=== PATIENT | male | born 1980 | race African-American/Black ===

== ENCOUNTER 2016-10-02 18:37 | Inpatient (IN) | payer OTHER ==
[2016-10-02 19:13] VITALS: BMI 23.6
--- NOTE | 2016-10-02 19:43 | HP ---
CIWA Score - CIWA Score Nausea/Vomitin-Mild Nausea/No Vomiting Muscle Tremors: 4-Moderate,w/Arms Extend Anxiety: 4-Mod. Anxious/Guarded Agitation: 4-Moderately Restless Paroxysmal Sweats: 1-Minimal Palms Moist Orientation: 0-Oriented Tacttile Disturbances: 0-None Auditory Disturbances: 0-None Visual Disturbances: 0-None Headache: 0-None Present CIWA-Ar Total Score: 14 Admission ROS BHS - HPI Chief Complaint: WITHDRAWAL SX Allergies/Adverse Reactions: Allergies Allergy/AdvReac Type Severity Reaction Status Date / Time Fish Containing Products Allergy Severe Rash Verified 06/03/16 11:39 No Known Drug Allergies Allergy Verified 06/03/16 11:39 History of Present Illness: 36 YEARS OLD MALE WITH LONG HISTORY OF ALCOHOL NICOTINE DEPENDENCE DENIES MEDICAL ISSUE HAS SEVERE INSOMNIA AND ANXIETY PANIC ATTACK IS ADMITTED TO DETOX Exam Limitations: No Limitations - Ebola screening Have you traveled outside of the country in the last 21 days: No Have you had contact with anyone from an Ebola affected area: No Have you been sick,other than usual withdrawal symptoms: No Do you have a fever: No - Review of Systems Constitutional: Chills, Loss of Appetite, Changes in sleep, Unintentional Wgt. Loss, Unexplained wgt Loss EENT: reports: No Symptoms Reported Respiratory: reports: No Symptoms reported Cardiac: reports: No Symptoms Reported GI: reports: Nausea, Poor Appetite, Poor Fluid Intake, Abdominal cramping : reports: No Symptoms Reported Musculoskeletal: reports: No Symptoms Reported Integumentary: reports: No Symptoms Reported Neuro: reports: Tremors Endocrine: reports: No Symptoms Reported Hematology: reports: No Symptoms Reported Psychiatric: reports: Judgement Intact, Mood/Affect Appropiate, Orientated x3 Other Systems: Reviewed and Negative Patient History - Patient Medical History Hx Anemia: No Hx Asthma: No Hx Chronic Obstructive Pulmonary Disease (COPD): No Hx Cancer: No Hx Cardiac Disorders: No Hx Congestive Heart Failure: No Hx Hypertension: No Hx Hypercholesterolemia: No Hx Pacemaker: No HX Cerebrovascular Accident: No Hx Seizures: No Hx Dementia: No Hx Diabetes: No Hx Gastrointestinal Disorders: No Hx Liver Disease: No Hx Genitourinary Disorders: No Hx Sexually Transmitted Disorders: No Hx Renal Disease (ESRD): No Hx Thyroid Disease: No Hx Human Immunodeficiency Virus (HIV): No Hx Hepatitis C: No Hx Depression: Yes Hx Suicide Attempt: No Hx Bipolar Disorder: No Hx Schizophrenia: No - Patient Surgical History Past Surgical History: Yes Hx Abdominal Surgery: Yes (UMBILICAL AGE 16) Hx Cholecystectomy: Yes (AGE 16) Anesthesia Reaction: No - PPD History Previous Implant?: Yes Documented Results: Negative w/o proof Implanted On Prior R Admission?: No PPD to be Administered?: Yes - Smoking Cessation Smoking history: Current every day smoker Have you smoked in the past 12 months: Yes Aproximately how many cigarettes per day: 20 Cigars Per Day: 0 Hx Chewing Tobacco Use: No Initiated information on smoking cessation: Yes 'Breaking Loose' booklet given: 10/02/16 - Substance & Tx. History Hx Alcohol Use: Yes Hx Substance Use: Yes Substance Use Type: Alcohol, Cocaine, Marijuana Hx Substance Use Treatment: No - Substances Abused Alcohol Route: Oral Frequency: Daily Amount used: GALLON WHISKY Age of first use: 16 Date of Last Use: 10/02/16 Family Disease History - Family Disease History Family Disease History: Other: Grandparent (), Father ( OVER DOSE), Mother (ALCOHOLIC), Brother (ALCOHOLIC), Sister (ALCOHOLIC) Admission Physical Exam S - Vital Signs Vital Signs: Vital Signs - 24 hr 10/02/16 19:12 Temperature 98.3 F Pulse Rate 77 Respiratory 20 Rate Blood Pressure 130/79 - Physical General Appearance: Yes: Appropriately Dressed, Mild Distress, Thin, Tremorous, Irritable, Sweating, Anxious HEENTM: Yes: Hearing grossly Normal, Normal ENT Inspection, Normocephalic, Normal Voice Respiratory: Yes: Chest Non-Tender, Lungs Clear, Normal Breath Sounds, No Respiratory Distress, No Accessory Muscle Use Neck: Yes: Supple, Trachea in good position Breast: Yes: Breasts Symetrical Cardiology: Yes: Regular Rhythm, Regular Rate, S1, S2 Abdominal: Yes: Non Tender, Soft Genitourinary: Yes: Within Normal Limits Back: Yes: Normal Inspection Musculoskeletal: Yes: full range of Motion, Gait Steady Extremities: Yes: Normal Inspection, Normal Range of Motion, Non-Tender, Tremors Neurological: Yes: Fully Oriented, Alert, Motor Strength 5/5, Normal Response, Depressed Affect Integumentary: Yes: Warm Lymphatic: Yes: Within Normal Limits - Diagnostic (1) Alcohol dependence with uncomplicated withdrawal Current Visit: Yes Status: Acute (2) Cocaine dependence, uncomplicated Current Visit: Yes Status: Chronic (3) Cannabis dependence, uncomplicated Current Visit: Yes Status: Chronic (4) Nicotine dependence Current Visit: Yes Status: Acute Qualifiers: Nicotine product type: cigarettes Substance use status: in withdrawal Qualified Code(s): F17.213 - Nicotine dependence, cigarettes, with withdrawal (5) Weight loss Current Visit: Yes Status: Acute (6) Insomnia due to anxiety and fear Current Visit: Yes Status: Suspected Cleared for Admission S - Detox or Rehab [facility] Level of Care: Medically Managed Detox Regimen/Protocol: Librium [facility] Breath Alcohol Content Breath Alcohol Content: 0 Urine Drug Screen - Results Drug Screen Negative: No Urine Drug Screen Results: THC-Marijuana, JEFFERY-Cocaine
[2016-10-02] MEDS ORDERED: NICOTINE POLACRILEX 4 MG GUM BC PRN (20:20)
[2016-10-02] MEDS ORDERED: chlordiazePOXIDE HCL 25 MG CAPSULE PO PRN (20:20)
[2016-10-02] MEDS ORDERED: MAGNESIUM CITRATE 300 ML BOTTLE PO PRN (20:20)
[2016-10-02] MEDS ORDERED: MENTHOL/PHENOL 1 EACH UD MM PRN (20:20)
[2016-10-02] MEDS ORDERED: MAGNESIUM HYDROX 2400MG/30ML ORAL SUSPENSION 30 ML CUP PO PRN (20:20)
[2016-10-02] MEDS ORDERED: ACETAMINOPHEN 325 MG TABLET (FP) PO PRN (20:20)
[2016-10-02] MEDS ORDERED: diphenhydrAMINE HCL 50 MG CAPSULE PO PRN (20:20)
[2016-10-02] MEDS ORDERED: IBUPROFEN 400 MG TABLET (FP) PO PRN (20:20)
[2016-10-02] MEDS ORDERED: LOPERAMIDE HCL 2 MG CAPSULE PO PRN (20:20)
[2016-10-02] MEDS ORDERED: P-EPHED 60MG/TRIPROLIDI 2.5MG TABLET PO PRN (20:20)
[2016-10-02] MEDS ORDERED: chlordiazePOXIDE HCL 25 MG CAPSULE PO ONE (20:20)
[2016-10-02] MEDS ORDERED: guaiFENesin/D-METHORPHAN HB 10 ML UNIT-DOSE CUPS PO PRN (20:20)
[2016-10-02] MEDS ORDERED: hydrOXYzine PAMOATE 50 MG CAPSULE (FP) PO PRN (20:20)
[2016-10-02] MEDS ORDERED: MAG HYDROX/AL HYDROX/SIMETH 30 ML UNIT-DOSE CUP PO PRN (20:20)
[2016-10-02 22:55] LABS: URINE APPEARANCE CLEAR; URINE BILIRUBIN NEGATIVE (NEGATIVE); URINE BLOOD NEGATIVE (NEGATIVE); URINE COLOR DKYELLOW; URINE GLUCOSE (UA) NEGATIVE (NEGATIVE); URINE KETONE NEGATIVE (NEGATIVE); URINE LEUK ESTERASE NEGATIVE (NEGATIVE); URINE NITRITE NEGATIVE (NEGATIVE); URINE PROTEIN NEGATIVE (NEGATIVE); URINE UROBILINOGEN 4.0 E.U/dl E.U./dl (0.2-1.0)
[2016-10-02] MEDS: THIAMINE HCL 100 MG TABLET (FP) PO SCH (23:20)
[2016-10-02] MEDS: chlordiazePOXIDE HCL 25 MG CAPSULE PO SCH (23:27)
[2016-10-03] MEDS: chlordiazePOXIDE HCL 25 MG CAPSULE PO SCH ×4 (06:11→22:13)
[2016-10-03 10:05] LABS: MCH 24.2 pg (25.7-33.7); MCHC 30.8 g/dl (32.0-35.9); MEAN CELL VOLUME 78.4 fl (80-96); MEAN PLT VOLUME 8.5 fl (7.5-11.1); PLATELET COUNT 311 K/MM3 (134-434); RDW 15.9 % (11.9-15.9); WHITE BLOOD COUNT 9.1 K/mm3 (4.0-10.0)
[2016-10-03 10:26] LABS: ALBUMIN 3.8 g/dl (3.4-5.0); ALK PHOS 877 U/L (45-117); ANION GAP 9 (8-16); BILIRUBIN,TOTAL 1.9 mg/dL (0.2-1.0); CALCIUM 9.4 mg/dL (8.5-10.1); CO2 30 mmol/L (21-32); COCKROFT - GAULT 126.66; CREATININE 0.9 mg/dL (0.7-1.3); GLUCOSE,RANDOM 59 mg/dL (74-106); SGOT/AST 222 U/L (15-37); SGPT/ALT 152 U/L (12-78); TOT PROT 8.7 g/dl (6.4-8.2)
[2016-10-03] MEDS: PRENATAL VITAMINS W/ FOLIC ACID TABLET (FP) PO SCH (10:53)
[2016-10-03] MEDS: NICOTINE 21 MG/24 HOURS TOPICAL PATCH TD SCH (10:53)
--- NOTE | 2016-10-03 14:41 | PN ---
[facility] CIWA - CIWA Score Nausea/Vomitin-Mild Nausea/No Vomiting Muscle Tremors: 2 Anxiety: 4-Mod. Anxious/Guarded Agitation: 3 Paroxysmal Sweats: 3 Orientation: 0-Oriented Tacttile Disturbances: 0-None Auditory Disturbances: 2-Mild Harshness/Frighten Visual Disturbances: 2-Mild Sensitivity Headache: 0-None Present CIWA-Ar Total Score: 17 [facility] Progress Note (SOAP) Subjective: Interrupted sleep, Body aches, Sweating. Objective: PT. A & O X 3, OBSERVED AMBULATING ON UNIT. NO ACUTE DISTRESS. PT. DENIES CHEST PAIN. 10/03/16 14:39 Vital Signs Temperature 98.0 F 10/03/16 13:05 Pulse Rate 76 10/03/16 13:05 Respiratory Rate 18 10/03/16 13:05 Blood Pressure 140/97 10/03/16 13:05 O2 Sat by Pulse Oximetry (%) Laboratory Tests 10/02/16 10/03/16 10/03/16 22:21 08:00 08:00 WBC 9.1 RBC 5.58 Hgb 13.5 Hct 43.8 MCV 78.4 L MCHC 30.8 L RDW 15.9 Plt Count 311 MPV 8.5 Sodium 138 Potassium 4.1 Chloride 99 Carbon Dioxide 30 Anion Gap 9 BUN 10 Creatinine 0.9 Creat Clearance w eGFR > 60 Random Glucose 59 L Calcium 9.4 Total Bilirubin 1.9 H AST 222 H ALT 152 H Alkaline Phosphatase 877 H Total Protein 8.7 H Albumin 3.8 Urine Color Dkyellow Urine Appearance Clear Urine pH 6.0 Ur Specific [place] 1.015 Urine Protein Negative Urine Glucose (UA) Negative Urine Ketones Negative Urine Blood Negative Urine Nitrite Negative Urine Bilirubin Negative Urine Urobilinogen 4.0 e.u/dl Ur Leukocyte Esterase Negative RPR Titer 10/03/16 08:00 WBC RBC Hgb Hct MCV MCHC RDW Plt Count MPV Sodium Potassium Chloride Carbon Dioxide Anion Gap BUN Creatinine Creat Clearance w eGFR Random Glucose Calcium Total Bilirubin AST ALT Alkaline Phosphatase Total Protein Albumin Urine Color Urine Appearance Urine pH Ur Specific [place] Urine Protein Urine Glucose (UA) Urine Ketones Urine Blood Urine Nitrite Urine Bilirubin Urine Urobilinogen Ur Leukocyte Esterase RPR Titer Nonreactive LABS NOTED. Assessment: 10/03/16 14:39 WITHDRAWAL SYMPTOMS. Plan: CONTINUE DETOX. HEPATIC FUNCTION PANEL ON 10/05/2016 FOR ELEVATED ADMISSION LIVER ENZYME LEVELS.
--- NOTE | 2016-10-03 15:00 | CONSULT ---
[facility] Psychiatric Consult - Data Date of interview: 10/03/16 Admission source: [facility] Identifying data: First admission to [facility] for this 36 y/o AA male seeking detox treatment for alcohol,cocaine and marijuana dependence.Patient is , a father of three,domiciled,unemployed and evasive on means of support. Substance Abuse History: - Smoking Cessation. Smoking history: Current every day smoker. Have you smoked in the past 12 months: Yes. Aproximately how many cigarettes per day: 20. Cigars Per Day: 0. Hx Chewing Tobacco Use: No. Initiated information on smoking cessation: Yes. 'Breaking Loose' booklet given : 10/02/16. - Substance & Tx. History. Hx Alcohol Use: Yes. Hx Substance Use : Yes. Substance Use Type: Alcohol, Cocaine, Marijuana. Hx Substance Use Treatment: No. - Substances Abused. Alcohol. Route: Oral. Frequency: Daily. Amount used: GALLON WHISKY. Age of first use: 16. Date of Last Use: . Confirmed by patient. Medical History: Noted history of cholecystectomy and umbilical herniorraphy.Elevated liver enzymes,as per [facility] report. Psychiatric History: No reported history of psychiatric hospitalizations or psychiatric OPD care.Patient indicates that was prescribed seroquel for insomnia.Mr Vora denies history of psychiatric illness.Denies suicide attempts. Physical/Sexual Abuse/Trauma History: Patient denies. Additional Comment: Urine Drug Screen Results: THC-Marijuana, JEFFERY-Cocaine.Noted. Mental Status Exam - Mental Status Exam Alert and Oriented to: Time, Place, Person Cognitive Function: Good Patient Appearance: Well Groomed Mood: Nervous, Withdrawn Affect: Mood Congruent Patient Behavior: Fatigued, Cooperative Speech Pattern: Clear Voice Loudness: Normal Thought Process: Goal Oriented Thought Disorder: Not Present Hallucinations: Denies Suicidal Ideation: Denies Homicidal Ideation: Denies Insight/Judgement: Poor Sleep: Poorly, Difficulty falling asleep Appetite: Good Muscle strength/Tone: Normal Gait/Station: Normal Psychiatric Findings - Problem List ([place] 1, 2,3) (1) Alcohol dependence with uncomplicated withdrawal Current Visit: Yes Status: Acute (2) Cannabis dependence, uncomplicated Current Visit: Yes Status: Acute (3) Cocaine dependence, uncomplicated Current Visit: Yes Status: Acute (4) Nicotine dependence Current Visit: Yes Status: Acute Qualifiers: Nicotine product type: cigarettes Substance use status: in withdrawal Qualified Code(s): F17.213 - Nicotine dependence, cigarettes, with withdrawal (5) Insomnia Current Visit: Yes Status: Acute - Initial Treatment Plan Initial Treatment Plan: Psychoeducation.Detoxification.Seroquel 100 mg po hs.Side effects/benefits discussed with the patient.Observation.
--- NOTE | 2016-10-03 15:45 | EKG ---
Test Reason : Blood Pressure : / mmHG Vent. Rate : 072 BPM Atrial Rate : 072 BPM P-R Int : 148 ms QRS Dur : 090 ms QT Int : 422 ms P-R-T Axes : 068 086 051 degrees QTc Int : 462 ms NORMAL SINUS RHYTHM NORMAL ECG NO PREVIOUS ECGS AVAILABLE Confirmed by MELVA ROMO, MUKESH ([id number]) on 10/03/2016 3:45:24 PM Referred By: Confirmed By:MUKESH FRYE MD
[2016-10-03] MEDS: QUEtiapine FUMARATE 100 MG TABLET (FP) PO SCH (22:13)
[2016-10-03] MEDS: THIAMINE HCL 100 MG TABLET (FP) PO SCH (22:13)
[2016-10-04] MEDS: chlordiazePOXIDE HCL 25 MG CAPSULE PO SCH ×3 (05:23→17:31)
[2016-10-04] MEDS: NICOTINE 21 MG/24 HOURS TOPICAL PATCH TD SCH (10:29)
[2016-10-04] MEDS: PRENATAL VITAMINS W/ FOLIC ACID TABLET (FP) PO SCH (10:30)
--- NOTE | 2016-10-04 13:17 | PN ---
S CIWA - CIWA Score Nausea/Vomitin Muscle Tremors: 3 Anxiety: 4-Mod. Anxious/Guarded Agitation: 4-Moderately Restless Paroxysmal Sweats: 2 Orientation: 0-Oriented Tacttile Disturbances: 1-Very Mild Itch/Numbness Auditory Disturbances: 0-None Visual Disturbances: 0-None Headache: 0-None Present CIWA-Ar Total Score: 16 [facility] Progress Note (SOAP) Subjective: Nausea, tremor, chills, sweating, anxious Objective: 10/04/16 13:15 Last Vital Signs Temp Pulse Resp BP Pulse Ox 97.0 F L 79 20 152/94 10/04/16 13:05 10/04/16 13:05 10/04/16 13:05 10/04/16 13:05 Laboratory Tests 10/02/16 10/03/16 10/03/16 22:21 08:00 08:00 WBC 9.1 RBC 5.58 Hgb 13.5 Hct 43.8 MCV 78.4 L MCHC 30.8 L RDW 15.9 Plt Count 311 MPV 8.5 Sodium 138 Potassium 4.1 Chloride 99 Carbon Dioxide 30 Anion Gap 9 BUN 10 Creatinine 0.9 Creat Clearance w eGFR > 60 Random Glucose 59 L Calcium 9.4 Total Bilirubin 1.9 H AST 222 H ALT 152 H Alkaline Phosphatase 877 H Total Protein 8.7 H Albumin 3.8 Urine Color Dkyellow Urine Appearance Clear Urine pH 6.0 Ur Specific [place] 1.015 Urine Protein Negative Urine Glucose (UA) Negative Urine Ketones Negative Urine Blood Negative Urine Nitrite Negative Urine Bilirubin Negative Urine Urobilinogen 4.0 e.u/dl Ur Leukocyte Esterase Negative RPR Titer 10/03/16 08:00 WBC RBC Hgb Hct MCV MCHC RDW Plt Count MPV Sodium Potassium Chloride Carbon Dioxide Anion Gap BUN Creatinine Creat Clearance w eGFR Random Glucose Calcium Total Bilirubin AST ALT Alkaline Phosphatase Total Protein Albumin Urine Color Urine Appearance Urine pH Ur Specific [place] Urine Protein Urine Glucose (UA) Urine Ketones Urine Blood Urine Nitrite Urine Bilirubin Urine Urobilinogen Ur Leukocyte Esterase RPR Titer Nonreactive Labs noted Assessment: 10/04/16 13:16 Withdrawal symptoms Plan: Continue detox
[2016-10-04] MEDS: QUEtiapine FUMARATE 100 MG TABLET (FP) PO SCH (22:11)
[2016-10-04] MEDS: chlordiazePOXIDE 5 MG CAPSULE PO SCH (22:11)
[2016-10-04] MEDS: THIAMINE HCL 100 MG TABLET (FP) PO SCH (22:11)
[2016-10-05] MEDS: chlordiazePOXIDE 5 MG CAPSULE PO SCH ×2 (05:45→11:15)
[2016-10-05 09:20] VITALS: BP 132/84; PULSE 85; TEMP 97.6
[2016-10-05] MEDS: NICOTINE 21 MG/24 HOURS TOPICAL PATCH TD SCH (10:13)
[2016-10-05] MEDS: PRENATAL VITAMINS W/ FOLIC ACID TABLET (FP) PO SCH (10:13)
--- NOTE | 2016-10-05 12:31 | DS ---
[facility] Detox Discharge Summary Admission Date: 10/02/16 Discharge Date: 10/05/16 - History Present History: Alcohol Dependence, Cannabis Dependence, Cocaine Dependence Pertinent Past History: Insomnia - Physical Exam Results Vital Signs: Vital Signs Temperature 97.6 F 10/05/16 09:19 Pulse Rate 85 10/05/16 09:19 Respiratory Rate 20 10/05/16 09:19 Blood Pressure 132/84 10/05/16 09:19 O2 Sat by Pulse Oximetry (%) Pertinent Admission Physical Exam Findings: Withdrawal sx. Laboratory Last Values WBC 9.1 K/mm3 (4.0-10.0) 10/03/16 08:00 RBC 5.58 M/mm3 (4.00-5.60) 10/03/16 08:00 Hgb 13.5 GM/dL (11.7-16.9) 10/03/16 08:00 Hct 43.8 % (35.4-49) 10/03/16 08:00 MCV 78.4 fl (80-96) L 10/03/16 08:00 MCHC 30.8 g/dl (32.0-35.9) L 10/03/16 08:00 RDW 15.9 % (11.9-15.9) 10/03/16 08:00 Plt Count 311 K/MM3 (134-434) 10/03/16 08:00 MPV 8.5 fl (7.5-11.1) 10/03/16 08:00 Sodium 138 mmol/L (136-145) 10/03/16 08:00 Potassium 4.1 mmol/L (3.5-5.1) 10/03/16 08:00 Chloride 99 mmol/L (98-107) 10/03/16 08:00 Carbon Dioxide 30 mmol/L (21-32) 10/03/16 08:00 Anion Gap 9 (8-16) 10/03/16 08:00 BUN 10 mg/dL (7-18) 10/03/16 08:00 Creatinine 0.9 mg/dL (0.7-1.3) 10/03/16 08:00 Creat Clearance w eGFR > 60 (>60) 10/03/16 08:00 Random Glucose 59 mg/dL (74-106) L 10/03/16 08:00 Calcium 9.4 mg/dL (8.5-10.1) 10/03/16 08:00 Total Bilirubin 1.9 mg/dL (0.2-1.0) H 10/03/16 08:00 AST 222 U/L (15-37) H 10/03/16 08:00 ALT 152 U/L (12-78) H 10/03/16 08:00 Alkaline Phosphatase 877 U/L (45-117) H 10/03/16 08:00 Total Protein 8.7 g/dl (6.4-8.2) H 10/03/16 08:00 Albumin 3.8 g/dl (3.4-5.0) 10/03/16 08:00 Urine Color Dkyellow 10/02/16 22:21 Urine Appearance Clear 10/02/16 22:21 Urine pH 6.0 (5.0-8.0) 10/02/16 22:21 Ur Specific [place] 1.015 (1.005-1.025) 10/02/16 22:21 Urine Protein Negative (NEGATIVE) 10/02/16 22:21 Urine Glucose (UA) Negative (NEGATIVE) 10/02/16 22:21 Urine Ketones Negative (NEGATIVE) 10/02/16 22:21 Urine Blood Negative (NEGATIVE) 10/02/16 22:21 Urine Nitrite Negative (NEGATIVE) 10/02/16 22:21 Urine Bilirubin Negative (NEGATIVE) 10/02/16 22:21 Urine Urobilinogen 4.0 e.u/dl E.U./dl (0.2-1.0) 10/02/16 22:21 Ur Leukocyte Esterase Negative (NEGATIVE) 10/02/16 22:21 RPR Titer Nonreactive (NONREACTIVE) 10/03/16 08:00 labs noted - Treatment Patient has Accepted a Rehab Referral to: [facility] - Medication Discharge Medications: Ambulatory Orders Quetiapine Fumarate [Seroquel -] 100 mg PO HS 10/02/16 Quetiapine Fumarate [Seroquel] 100 mg PO HS #30 tablet 10/03/16 - Diagnosis (1) Alcohol dependence with uncomplicated withdrawal Current Visit: Yes Status: Acute (2) Cannabis dependence, uncomplicated Current Visit: Yes Status: Acute (3) Cocaine dependence, uncomplicated Current Visit: Yes Status: Acute (4) Insomnia Current Visit: Yes Status: Acute (5) Nicotine dependence Current Visit: Yes Status: Acute Qualifiers: Nicotine product type: cigarettes Substance use status: in withdrawal Qualified Code(s): F17.213 - Nicotine dependence, cigarettes, with withdrawal - AMA Did Patient Leave Against Medical Advice: Yes
[2016-10-05] MEDS ORDERED: chlordiazePOXIDE HCL 10 MG CAPSULE PO SCH (23:00)
== END 2016-10-05 12:15 | disposition left against medical advice (07) | DRG 770 ==
LOC: YASAS 18:37 → Y3N 21:09
PROVIDERS: ADMIT Internal Medicine; ATTEND Internal Medicine
PROC: HZ2ZZZZ Detoxification Services for Substance Abuse Treatment (ICD-10-PCS; principal; 2016-10-02)
DX: F10.230 Alcohol dependence with withdrawal, uncomplicated (principal); F14.20 Cocaine dependence, uncomplicated; F12.20 Cannabis dependence, uncomplicated; F17.210 Nicotine dependence, cigarettes, uncomplicated; G47.00 Insomnia, unspecified; Z87.898 Personal history of other specified conditions
CPT/HCPCS: 36415; 80053; 81003; 85027; 86593; 93005; 93010

== ENCOUNTER 2017-02-05 12:53 | Inpatient (IN) | payer OTHER ==
[2017-02-05 17:30] VITALS: BMI 25.4
--- NOTE | 2017-02-05 19:13 | HP ---
CIWA Score - CIWA Score Nausea/Vomitin-Mild Nausea/No Vomiting Muscle Tremors: 4-Moderate,w/Arms Extend Anxiety: 4-Mod. Anxious/Guarded Agitation: 4-Moderately Restless Paroxysmal Sweats: 1-Minimal Palms Moist Orientation: 0-Oriented Tacttile Disturbances: 0-None Auditory Disturbances: 0-None Visual Disturbances: 0-None Headache: 0-None Present CIWA-Ar Total Score: 14 Admission ROS BHS - HPI Chief Complaint: WITHDRAWAL SX Allergies/Adverse Reactions: Allergies Allergy/AdvReac Type Severity Reaction Status Date / Time Fish Containing Products Allergy Severe Rash Verified 02/05/17 17:58 No Known Drug Allergies Allergy Verified 02/05/17 17:58 History of Present Illness: 36 YEARS OLD MALE WITH LONG HISTORY OF ALCOHOL COCAINE MARIJUANA DEPENDENCE HAS CIRRHOSIS OF THE LIVER THROUGH LIVER BIOPSY AND DEPRESSION IS ADMITTED TO DETOX Exam Limitations: No Limitations - Ebola screening Have you traveled outside of the country in the last 21 days: No Have you had contact with anyone from an Ebola affected area: No Have you been sick,other than usual withdrawal symptoms: No Do you have a fever: No - Review of Systems Constitutional: Changes in sleep, Weight Stable EENT: reports: No Symptoms Reported Respiratory: reports: No Symptoms reported GI: reports: Nausea, Poor Fluid Intake, Indigestion, Abdominal cramping : reports: No Symptoms Reported Musculoskeletal: reports: No Symptoms Reported Integumentary: reports: No Symptoms Reported Neuro: reports: Tremors Endocrine: reports: No Symptoms Reported Hematology: reports: No Symptoms Reported Psychiatric: reports: Judgement Intact, Orientated x3, Anxious, Depressed Other Systems: Reviewed and Negative Patient History - Patient Medical History Hx Anemia: No Hx Asthma: No Hx Chronic Obstructive Pulmonary Disease (COPD): No Hx Cancer: No Hx Cardiac Disorders: No Hx Congestive Heart Failure: No Hx Hypertension: No Hx Hypercholesterolemia: No Hx Pacemaker: No HX Cerebrovascular Accident: No Hx Seizures: No Hx Dementia: No Hx Diabetes: No Hx Gastrointestinal Disorders: Yes Hx Liver Disease: Yes (CIRRHOSIS) Hx Genitourinary Disorders: No Hx Sexually Transmitted Disorders: No Hx Renal Disease (ESRD): No Hx Thyroid Disease: No Hx Human Immunodeficiency Virus (HIV): No Hx Hepatitis C: No Hx Depression: Yes Hx Suicide Attempt: No Hx Bipolar Disorder: No Hx Schizophrenia: No - Patient Surgical History Past Surgical History: Yes Hx Neurologic Surgery: No Hx Cataract Extraction: No Hx Cardiac Surgery: No Hx Lung Surgery: No Hx Breast Surgery: No Hx Breast Biopsy: No Hx Abdominal Surgery: Yes (UMBILICAL AGE 16) Hx Appendectomy: No Hx Cholecystectomy: Yes (AGE 16) Hx Genitourinary Surgery: No Hx Orthopedic Surgery: No Anesthesia Reaction: No - PPD History Previous Implant?: Yes Documented Results: Negative w/proof Implanted On Prior [facility] Admission?: Yes Date: 10/04/16 PPD to be Administered?: No - Smoking Cessation Smoking history: Former smoker Have you smoked in the past 12 months: No Aproximately how many cigarettes per day: 0 Cigars Per Day: 0 Hx Chewing Tobacco Use: No Initiated information on smoking cessation: No - Substance & Tx. History Hx Alcohol Use: Yes Hx Substance Use: Yes Substance Use Type: Alcohol, Cocaine, Marijuana Hx Substance Use Treatment: Yes (10/02-10/05/16 [facility] - Substances Abused Alcohol Route: Oral Frequency: Daily Amount used: LIQUOR- 5 PINTS Age of first use: 16 Date of Last Use: 02/04/17 Crack Route: Smoking Frequency: Daily Amount used: 15 BAGS Age of first use: 28 Date of Last Use: 02/04/17 Family Disease History - Family Disease History Family Disease History: Other: Grandparent (), Father ( OVER DOSE), Mother (ALCOHOLIC), Brother (ALCOHOLIC), Sister (ALCOHOLIC) Admission Physical Exam BHS - Vital Signs Vital Signs: Vital Signs - 24 hr 02/05/17 17:28 Temperature 97.2 F L Pulse Rate 103 H Respiratory 20 Rate Blood Pressure 108/59 - Physical General Appearance: Yes: Appropriately Dressed, Mild Distress, Tremorous, Irritable, Sweating, Anxious HEENTM: Yes: Hearing grossly Normal, Normal ENT Inspection, Normocephalic, Normal Voice Respiratory: Yes: Chest Non-Tender, Lungs Clear, Normal Breath Sounds, No Respiratory Distress, No Accessory Muscle Use Neck: Yes: Supple, Trachea in good position Breast: Yes: Breasts Symetrical Cardiology: Yes: Regular Rhythm, S1, S2, Tachycardia Abdominal: Yes: Normal Bowel Sounds, Non Tender, Soft Genitourinary: Yes: Within Normal Limits Back: Yes: Normal Inspection Musculoskeletal: Yes: full range of Motion, Gait Steady Extremities: Yes: Normal Inspection, Normal Range of Motion, Non-Tender, Tremors Neurological: Yes: Fully Oriented, Alert, Motor Strength 5/5, Normal Response, Depressed Affect Integumentary: Yes: Warm Lymphatic: Yes: Within Normal Limits - Diagnostic (1) Alcohol dependence with uncomplicated withdrawal Current Visit: Yes Status: Acute (2) Cannabis dependence, uncomplicated Current Visit: Yes Status: Chronic (3) Cocaine dependence, uncomplicated Current Visit: Yes Status: Chronic (4) Weight loss Current Visit: Yes Status: Acute (5) GERD (gastroesophageal reflux disease) Current Visit: Yes Status: Chronic Qualifiers: Esophagitis presence: without esophagitis Qualified Code(s): K21.9 - Gastro-esophageal reflux disease without esophagitis; K21.9 - Gastro- esophageal reflux disease without esophagitis; K21.9 - Gastro-esophageal reflux disease without esophagitis Cleared for Admission BHS - Detox or Rehab S Level of Care: Medically Managed Detox Regimen/Protocol: Librium [facility] Breath Alcohol Content Breath Alcohol Content: 0 Urine Drug Screen - Results Drug Screen Negative: No Urine Drug Screen Results: THC-Marijuana, JEFFERY-Cocaine, TCA-Tricyclic Antidepress
[2017-02-05] MEDS ORDERED: MAG HYDROX/AL HYDROX/SIMETH 30 ML UNIT-DOSE CUP PO PRN (19:18)
[2017-02-05] MEDS ORDERED: IBUPROFEN 400 MG TABLET (FP) PO PRN (19:18)
[2017-02-05] MEDS ORDERED: MENTHOL/PHENOL 1 EACH UD MM PRN (19:18)
[2017-02-05] MEDS ORDERED: MAGNESIUM CITRATE 300 ML BOTTLE PO PRN (19:18)
[2017-02-05] MEDS ORDERED: MAGNESIUM HYDROX 2400MG/30ML ORAL SUSPENSION 30 ML CUP PO PRN (19:18)
[2017-02-05] MEDS ORDERED: guaiFENesin/D-METHORPHAN HB 10 ML UNIT-DOSE CUPS PO PRN (19:18)
[2017-02-05] MEDS ORDERED: P-EPHED 60MG/TRIPROLIDI 2.5MG TABLET PO PRN (19:18)
[2017-02-05] MEDS ORDERED: LOPERAMIDE HCL 2 MG CAPSULE PO PRN (19:18)
[2017-02-05] MEDS: chlordiazePOXIDE HCL 25 MG CAPSULE PO PRN (20:19)
[2017-02-05 23:33] LABS: URINE APPEARANCE SLCLOUDY; URINE BILIRUBIN NEGATIVE (NEGATIVE); URINE BLOOD 1+ (NEGATIVE); URINE COLOR AMBER; URINE GLUCOSE (UA) NEGATIVE (NEGATIVE); URINE KETONE NEGATIVE (NEGATIVE); URINE NITRITE NEGATIVE (NEGATIVE); URINE UROBILINOGEN 4.0 E.U/dl mg/dL (0.2-1.0)
[2017-02-05 23:38] LABS: URINE PROTEIN 1+ (NEGATIVE)
[2017-02-05 23:43] LABS: URINE BACTERIA RARE /hpf (NONE SEEN); URINE MUCUS RARE; URINE RBC 13 /hpf (0-3); URINE WBC 7 /hpf (3-5)
[2017-02-06] MEDS: THIAMINE HCL 100 MG TABLET (FP) PO SCH ×2 (00:02→22:06)
[2017-02-06] MEDS: RANITIDINE HCL 150 MG TABLET (FP) PO SCH ×3 (00:02→22:06)
[2017-02-06] MEDS: chlordiazePOXIDE HCL 25 MG CAPSULE PO SCH ×5 (00:02→22:06)
[2017-02-06] MEDS ORDERED: PRENATAL VITAMINS W/ FOLIC ACID TABLET (FP) PO SCH (10:00)
[2017-02-06 11:01] LABS: MCH 24.1 pg (25.7-33.7); MCHC 31.4 g/dl (32.0-35.9); MEAN CELL VOLUME 76.8 fl (80-96); MEAN PLT VOLUME 8.3 fl (7.5-11.1); PLATELET COUNT 251 K/MM3 (134-434); WHITE BLOOD COUNT 8.3 K/mm3 (4.0-10.0)
[2017-02-06 11:04] LABS: ALBUMIN 2.9 g/dl (3.4-5.0); ANION GAP 8 (8-16); BILIRUBIN,TOTAL 0.8 mg/dL (0.2-1.0); CALCIUM 8.4 mg/dL (8.5-10.1); CO2 29 mmol/L (21-32); GLUCOSE,RANDOM 97 mg/dL (74-106); SGOT/AST 160 U/L (15-37); SGPT/ALT 122 U/L (12-78)
[2017-02-06 11:08] LABS: ALK PHOS 592 U/L (45-117); TOT PROT 7.1 g/dl (6.4-8.2)
[2017-02-06 12:06] LABS: URINE LEUK ESTERASE Negative (NEGATIVE)
--- NOTE | 2017-02-06 12:52 | EKG ---
Test Reason : Blood Pressure : / mmHG Vent. Rate : 089 BPM Atrial Rate : 202 BPM P-R Int : 000 ms QRS Dur : 088 ms QT Int : 382 ms P-R-T Axes : 000 072 038 degrees QTc Int : 464 ms ATRIAL FIBRILLATION WITH PREMATURE VENTRICULAR OR ABERRANTLY CONDUCTED COMPLEXES NONSPECIFIC ST AND T WAVE ABNORMALITY PROLONGED QT ABNORMAL ECG WHEN COMPARED WITH ECG OF 05-FEB-2017 20:41, NO SIGNIFICANT CHANGE WAS FOUND Confirmed by FAHAD MUÑOZ MD ([id number]) on 02/06/2017 12:52:21 PM Referred By: RAFAEL FRANZ Confirmed By:FAHAD MUÑOZ MD
--- NOTE | 2017-02-06 12:53 | EKG ---
Test Reason : Blood Pressure : / mmHG Vent. Rate : 095 BPM Atrial Rate : 220 BPM P-R Int : 000 ms QRS Dur : 090 ms QT Int : 374 ms P-R-T Axes : 000 075 043 degrees QTc Int : 469 ms ATRIAL FIBRILLATION NONSPECIFIC ST AND T WAVE ABNORMALITY PROLONGED QT ABNORMAL ECG Confirmed by FAHAD MUÑOZ MD ([id number]) on 02/06/2017 12:52:32 PM Referred By: RAFAEL FRANZ Confirmed By:FAHAD MUÑOZ MD
[2017-02-06] MEDS: chlordiazePOXIDE HCL 25 MG CAPSULE PO PRN (12:58)
--- NOTE | 2017-02-06 14:40 | PN ---
S CIWA - CIWA Score Nausea/Vomitin Muscle Tremors: 3 Anxiety: 3 Agitation: 2 Paroxysmal Sweats: 1-Minimal Palms Moist Orientation: 0-Oriented Tacttile Disturbances: 1-Very Mild Itch/Numbness Auditory Disturbances: 1-Very Mild Visual Disturbances: 0-None Headache: 2-Mild CIWA-Ar Total Score: 16 BHS Progress Note (SOAP) Subjective: alert,irritable,anxious,interrupted sleep,tremor,pain in the body Objective: 02/06/17 14:37 Vital Signs Temperature 98.2 F 02/06/17 13:43 Pulse Rate 103 H 02/06/17 13:43 Respiratory Rate 18 02/06/17 13:43 Blood Pressure 129/89 02/06/17 13:43 O2 Sat by Pulse Oximetry (%) ekg atrial fibrillation 86/min no chest pain,no sob,no dizziness Laboratory Last Values WBC 8.3 K/mm3 (4.0-10.0) 02/06/17 08:00 RBC 4.95 M/mm3 (4.00-5.60) 02/06/17 08:00 Hgb 11.9 GM/dL (11.7-16.9) D 02/06/17 08:00 Hct 38.0 % (35.4-49) 02/06/17 08:00 MCV 76.8 fl (80-96) L 02/06/17 08:00 MCH 24.1 pg (25.7-33.7) L 02/06/17 08:00 MCHC 31.4 g/dl (32.0-35.9) L 02/06/17 08:00 RDW 15.0 % (11.9-15.9) 02/06/17 08:00 Plt Count 251 K/MM3 (134-434) 02/06/17 08:00 MPV 8.3 fl (7.5-11.1) 02/06/17 08:00 Sodium 140 mmol/L (136-145) 02/06/17 08:00 Potassium 3.6 mmol/L (3.5-5.1) 02/06/17 08:00 Chloride 103 mmol/L (98-107) 02/06/17 08:00 Carbon Dioxide 29 mmol/L (21-32) 02/06/17 08:00 Anion Gap 8 (8-16) 02/06/17 08:00 BUN 14 mg/dL (7-18) D 02/06/17 08:00 Creatinine 1.0 mg/dL (0.7-1.3) 02/06/17 08:00 Creat Clearance w eGFR > 60 (>60) 02/06/17 08:00 Random Glucose 97 mg/dL (74-106) D 02/06/17 08:00 Calcium 8.4 mg/dL (8.5-10.1) L 02/06/17 08:00 Total Bilirubin 0.8 mg/dL (0.2-1.0) D 02/06/17 08:00 AST 160 U/L (15-37) H D 02/06/17 08:00 ALT 122 U/L (12-78) H 02/06/17 08:00 Alkaline Phosphatase 592 U/L (45-117) H D 02/06/17 08:00 Total Protein 7.1 g/dl (6.4-8.2) 02/06/17 08:00 Albumin 2.9 g/dl (3.4-5.0) L D 02/06/17 08:00 Urine Color Stacy 02/05/17 22: Urine Appearance Slcloudy 02/05/17 22: Urine pH 6.0 (5.0-8.0) 02/05/17 22: Ur Specific [place] 1.025 (1.005-1.025) 02/05/17 22:17 Urine Protein 1+ (NEGATIVE) H 02/05/17 22:17 Urine Glucose (UA) Negative (NEGATIVE) 02/05/17 22: Urine Ketones Negative (NEGATIVE) 02/05/17 22: Urine Blood 1+ (NEGATIVE) H 02/05/17 22:17 Urine Nitrite Negative (NEGATIVE) 02/05/17 22: Urine Bilirubin Negative (NEGATIVE) 02/05/17 22: Urine Urobilinogen 4.0 e.u/dl mg/dL (0.2-1.0) 02/05/17 22:17 Ur Leukocyte Esterase Negative (NEGATIVE) 02/05/17 22:17 Urine RBC 13 /hpf (0-3) 02/05/17 22:17 Urine WBC 7 /hpf (3-5) 02/05/17 22:17 Ur Epithelial Cells Rare /hpf (FEW) 02/05/17 22:17 Urine Bacteria Rare /hpf (NONE SEEN) 02/05/17 22:17 Urine Mucus Rare 02/05/17 22: RPR Titer Nonreactive (NONREACTIVE) 02/06/17 08:00 Assessment: 02/06/17 14:39 withdrawal symptom Plan: continue detox,repeat ekg,d/c tylenol for elevation of ast,alt,repeat ast,alt, inr in am
--- NOTE | 2017-02-06 14:59 | PN ---
BHS Progress Note Note: repeat ekg nsr,no chest pain,no sob,no dizziness,continue detox
--- NOTE | 2017-02-06 17:32 | CONSULT ---
[facility] Psychiatric Consult - Data Date of interview: 02/06/17 Admission source: [facility] Identifying data: Readmission to [facility] for this 36 y/o AA male seeking detox treatment on for alcohol,cocaine and marijuana dependence.Patient is ,a father of four,domiciled,unemployed and supported by spouse. Substance Abuse History: Confirmed by patient. Smoking Cessation. Smoking history: Former smoker. Have you smoked in the past 12 months: No. Aproximately how many cigarettes per day: 0. Cigars Per Day: 0. Hx Chewing Tobacco Use: No. Initiated information on smoking cessation: No. - Substance & Tx. History. Hx Alcohol Use: Yes. Hx Substance Use: Yes. Substance Use Type : Alcohol, Cocaine, Marijuana. Hx Substance Use Treatment: Yes (10/02-10/05/16 [facility]). - Substances Abused. Alcohol. Route: Oral. Frequency: Daily. Amount used: LIQUOR- 5 PINTS. Age of first use: 16. Date of Last Use: . Crack. Route: Smoking. Frequency: Daily. Amount used: 15 BAGS. Age of first use: 28. Date of Last Use: 02/04/17 Medical History: History of cholecystectomy and umbilical herniorraphy.Cirrhosis of the liver. Psychiatric History: History of psychiatric hospitalizations at [facility].Mr Vora indicates that he is currently in outpatient treatment at the [facility] clinic in [facility].Prescribed seroquel 200 mg/s + 50 mg /day as prn.Patient denies history of suicide attempts. Physical/Sexual Abuse/Trauma History: Patient denies history of abuse. Additional Comment: Urine Drug Screen Results: THC-Marijuana, JEFFERY-Cocaine, TCA- Tricyclic Antidepressant.Noted. Mental Status Exam - Mental Status Exam Alert and Oriented to: Time, Place, Person Cognitive Function: Good Patient Appearance: Well Groomed (tttoos of arms + forearms) Mood: Nervous, Withdrawn, Irritable Affect: Mood Congruent Patient Behavior: Fatigued, Guarded Speech Pattern: Clear (non spontaneous but coherent and relevant) Voice Loudness: Normal Thought Process: Goal Oriented Thought Disorder: Not Present Hallucinations: Denies Suicidal Ideation: Denies Homicidal Ideation: Denies Insight/Judgement: Poor Sleep: Poorly, Difficulty falling asleep Appetite: Good Muscle strength/Tone: Normal Gait/Station: Normal Psychiatric Findings - Problem List ([place] 1, 2,3) (1) Alcohol dependence with uncomplicated withdrawal Current Visit: Yes Status: Acute (2) Cannabis dependence, uncomplicated Current Visit: Yes Status: Acute (3) Cocaine dependence, uncomplicated Current Visit: Yes Status: Acute (4) Nicotine dependence Current Visit: Yes Status: Acute Qualifiers: Nicotine product type: cigarettes Substance use status: in withdrawal Qualified Code(s): F17.213 - Nicotine dependence, cigarettes, with withdrawal; F17.213 - Nicotine dependence, cigarettes, with withdrawal (5) Substance induced mood disorder Current Visit: Yes Status: Acute (6) GERD (gastroesophageal reflux disease) Current Visit: Yes Status: Chronic Qualifiers: Esophagitis presence: without esophagitis Qualified Code(s): K21.9 - Gastro-esophageal reflux disease without esophagitis; K21.9 - Gastro- esophageal reflux disease without esophagitis; K21.9 - Gastro-esophageal reflux disease without esophagitis (7) Insomnia Current Visit: Yes Status: Acute - Initial Treatment Plan Initial Treatment Plan: Psychoeducation.Detoxfication.Seroquel 200 mg po hs + 50 mg po daily prn (requested by patient).Verified by pharmacy claims of at [facility].Side effects/benefits discussed with the patient.Eager to resume care.Observation.NO scripts at discharge.
[2017-02-06] MEDS ORDERED: QUEtiapine FUMARATE 50 MG TABLET PO PRN (17:56)
[2017-02-06] MEDS ORDERED: QUEtiapine FUMARATE 200 MG TABLET PO SCH (22:00)
[2017-02-07] MEDS: chlordiazePOXIDE HCL 25 MG CAPSULE PO SCH (05:29)
[2017-02-07 06:57] VITALS: BP 114/81; PULSE 101; TEMP 97.9
--- NOTE | 2017-02-07 08:49 | PN ---
S CIWA - CIWA Score Nausea/Vomitin Muscle Tremors: 3 Anxiety: 3 Agitation: 2 Paroxysmal Sweats: 1-Minimal Palms Moist Orientation: 0-Oriented Tacttile Disturbances: 1-Very Mild Itch/Numbness Auditory Disturbances: 1-Very Mild Visual Disturbances: 1-Very Mild Sensitivity Headache: 2-Mild CIWA-Ar Total Score: 16 BHS Progress Note (SOAP) Subjective: ALERT,IRRITABLE,ANXIOUS,INTERRUPTED SLEEP,PAIN IN THE BODY Objective: 02/07/17 08:47 Vital Signs Temperature 97.9 F 02/07/17 06:56 Pulse Rate 101 H 02/07/17 06:56 Respiratory Rate 20 02/07/17 06:56 Blood Pressure 114/81 02/07/17 06:56 O2 Sat by Pulse Oximetry (%) 02/07/17 08:47 Laboratory Last Values WBC 8.3 K/mm3 (4.0-10.0) 02/06/17 08:00 RBC 4.95 M/mm3 (4.00-5.60) 02/06/17 08:00 Hgb 11.9 GM/dL (11.7-16.9) D 02/06/17 08:00 Hct 38.0 % (35.4-49) 02/06/17 08:00 MCV 76.8 fl (80-96) L 02/06/17 08:00 MCH 24.1 pg (25.7-33.7) L 02/06/17 08:00 MCHC 31.4 g/dl (32.0-35.9) L 02/06/17 08:00 RDW 15.0 % (11.9-15.9) 02/06/17 08:00 Plt Count 251 K/MM3 (134-434) 02/06/17 08:00 MPV 8.3 fl (7.5-11.1) 02/06/17 08:00 Sodium 140 mmol/L (136-145) 02/06/17 08:00 Potassium 3.6 mmol/L (3.5-5.1) 02/06/17 08:00 Chloride 103 mmol/L (98-107) 02/06/17 08:00 Carbon Dioxide 29 mmol/L (21-32) 02/06/17 08:00 Anion Gap 8 (8-16) 02/06/17 08:00 BUN 14 mg/dL (7-18) D 02/06/17 08:00 Creatinine 1.0 mg/dL (0.7-1.3) 02/06/17 08:00 Creat Clearance w eGFR > 60 (>60) 02/06/17 08:00 Random Glucose 97 mg/dL (74-106) D 02/06/17 08:00 Calcium 8.4 mg/dL (8.5-10.1) L 02/06/17 08:00 Total Bilirubin 0.8 mg/dL (0.2-1.0) D 02/06/17 08:00 AST 160 U/L (15-37) H D 02/06/17 08:00 ALT 122 U/L (12-78) H 02/06/17 08:00 Alkaline Phosphatase 592 U/L (45-117) H D 02/06/17 08:00 Total Protein 7.1 g/dl (6.4-8.2) 02/06/17 08:00 Albumin 2.9 g/dl (3.4-5.0) L D 02/06/17 08:00 Urine Color Stacy 02/05/17: Urine Appearance Slcloudy 02/05/17 22: Urine pH 6.0 (5.0-8.0) 02/05/17: Ur Specific [place] 1.025 (1.005-1.025) 02/05/17 22:17 Urine Protein 1+ (NEGATIVE) H 02/05/17 22:17 Urine Glucose (UA) Negative (NEGATIVE) 02/05/17 22: Urine Ketones Negative (NEGATIVE) 02/05/17 22:17 Urine Blood 1+ (NEGATIVE) H 02/05/17 22:17 Urine Nitrite Negative (NEGATIVE) 02/05/17 22: Urine Bilirubin Negative (NEGATIVE) 02/05/17 22: Urine Urobilinogen 4.0 e.u/dl mg/dL (0.2-1.0) 02/05/17 22:17 Ur Leukocyte Esterase Negative (NEGATIVE) 02/05/17 22:17 Urine RBC 13 /hpf (0-3) 02/05/17 22:17 Urine WBC 7 /hpf (3-5) 02/05/17 22:17 Ur Epithelial Cells Rare /hpf (FEW) 02/05/17 22:17 Urine Bacteria Rare /hpf (NONE SEEN) 02/05/17 22:17 Urine Mucus Rare 02/05/17 22:17 RPR Titer Nonreactive (NONREACTIVE) 02/06/17 08:00 Assessment: WITHDRAWAL SYMPTOM Plan: CONTINUE DETOX
--- NOTE | 2017-02-07 09:05 | DS ---
[facility] Detox Discharge Summary Admission Date: 02/05/17 Discharge Date: 02/07/17 - History Present History: Alcohol Dependence, Cannabis Dependence, Cocaine Dependence Additional Comments: PATIENT DID NOT WANT TO COMPLETE TREATMENT DUE TO PERSONAL PROBLEM,SIGNED RELEASE AMA,SEEN BY COUNSELOR Pertinent Past History: GERD WEIGHT LOSS - Physical Exam Results Vital Signs: Vital Signs Temperature 97.9 F 02/07/17 06:56 Pulse Rate 101 H 02/07/17 06:56 Respiratory Rate 20 02/07/17 06:56 Blood Pressure 114/81 02/07/17 06:56 O2 Sat by Pulse Oximetry (%) Pertinent Admission Physical Exam Findings: WITHDRAWAL SYMPTOM - Medication Discharge Medications: Ambulatory Orders Quetiapine Fumarate [Seroquel -] 200 mg PO HS 10/02/16 Disulfiram [Antabuse] 250 mg PO DAILY 02/05/17 - Diagnosis (1) Alcohol dependence with uncomplicated withdrawal Current Visit: Yes Status: Acute (2) Cannabis dependence, uncomplicated Current Visit: Yes Status: Acute (3) Cocaine dependence, uncomplicated Current Visit: Yes Status: Acute (4) Insomnia Current Visit: Yes Status: Acute (5) Nicotine dependence Current Visit: Yes Status: Acute Qualifiers: Nicotine product type: cigarettes Substance use status: in withdrawal Qualified Code(s): F17.213 - Nicotine dependence, cigarettes, with withdrawal; F17.213 - Nicotine dependence, cigarettes, with withdrawal (6) Substance induced mood disorder Current Visit: Yes Status: Acute (7) Weight loss Current Visit: Yes Status: Acute (8) GERD (gastroesophageal reflux disease) Current Visit: Yes Status: Chronic Qualifiers: Esophagitis presence: without esophagitis Qualified Code(s): K21.9 - Gastro-esophageal reflux disease without esophagitis; K21.9 - Gastro- esophageal reflux disease without esophagitis; K21.9 - Gastro-esophageal reflux disease without esophagitis - AMA Did Patient Leave Against Medical Advice: Yes
[2017-02-07 11:42] LABS: INR 0.9 (0.82-1.09); PROTHROMBIN TIME (PATIENT) 10.2 SEC (9.98-11.88)
--- NOTE | 2017-02-07 11:42 | EKG ---
Test Reason : Blood Pressure : / mmHG Vent. Rate : 085 BPM Atrial Rate : 085 BPM P-R Int : 152 ms QRS Dur : 086 ms QT Int : 382 ms P-R-T Axes : 066 075 047 degrees QTc Int : 454 ms NORMAL SINUS RHYTHM POSSIBLE LEFT ATRIAL ENLARGEMENT ST ELEVATION, CONSIDER EARLY REPOLARIZATION, PERICARDITIS, OR INJURY NONSPECIFIC ST AND T WAVE ABNORMALITY ABNORMAL ECG WHEN COMPARED WITH ECG OF 05-FEB-2017 20:52, SINUS RHYTHM HAS REPLACED ATRIAL FIBRILLATION Confirmed by FAHAD MUÑOZ MD ([id number]) on 02/07/2017 11:41:58 AM Referred By: RAFAEL FRANZ Confirmed By:FAHAD MUÑOZ MD
[2017-02-07 11:57] LABS: SGPT/ALT 141 U/L (12-78)
[2017-02-07 12:18] LABS: SGOT/AST 187 U/L (15-37)
[2017-02-07] MEDS ORDERED: chlordiazePOXIDE 5 MG CAPSULE PO SCH (23:00)
[2017-02-08] MEDS ORDERED: chlordiazePOXIDE HCL 10 MG CAPSULE PO SCH (23:00)
== END 2017-02-07 09:15 | disposition left against medical advice (07) | DRG 770 ==
LOC: YASAS 12:53 → Y6N 18:21
PROVIDERS: ADMIT Internal Medicine; ATTEND Internal Medicine
PROC: HZ2ZZZZ Detoxification Services for Substance Abuse Treatment (ICD-10-PCS; principal; 2017-02-05)
DX: F10.230 Alcohol dependence with withdrawal, uncomplicated (principal); F14.20 Cocaine dependence, uncomplicated; F17.213 Nicotine dependence, cigarettes, with withdrawal; F19.24 Other psychoactive substance dependence with psychoactive substance-induced mood disorder; F12.20 Cannabis dependence, uncomplicated; I48.91 Unspecified atrial fibrillation; K21.9 Gastro-esophageal reflux disease without esophagitis; K74.60 Unspecified cirrhosis of liver; G47.00 Insomnia, unspecified; Z87.898 Personal history of other specified conditions; Z91.013 Allergy to seafood
CPT/HCPCS: 36415; 80053; 81003; 81015; 84450; 84460; 85027; 85610; 86593; 93005; 93010